=== PATIENT | male | born 1985 | race Caucasian/White ===

== ENCOUNTER 2020-02-20 21:07 | Emergency (ER) | payer BC, MEDICAID ==
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
[2020-02-20 22:13] VITALS: BP 102/75; PULSE 78
== END 2020-02-21 00:07 | disposition home or self-care (01) ==
LOC: JD.ED 21:07
DX: S89.92XA Unspecified injury of left lower leg, initial encounter (principal); Z88.6 Allergy status to analgesic agent; Z90.89 Acquired absence of other organs; Z90.49 Acquired absence of other specified parts of digestive tract; W22.8XXA Striking against or struck by other objects, initial encounter
CPT/HCPCS: 73562-LT; 73590-LT; 99282; 99283

== ENCOUNTER 2020-11-23 16:40 | Emergency (ER) | payer OTHER ==
[2020-11-23 16:52] VITALS: BP 115/75; PULSE 80
[2020-11-23] MEDS ORDERED: Sodium Chloride 0.9% 1,000 ML IV STA (17:05)
[2020-11-23] MEDS ORDERED: Ketorolac 30 MG/ML SDV IVPUSH ONE (17:05)
[2020-11-23] MEDS ORDERED: Ondansetron 4 MG/2 ML SDV IVPUSH ONE (17:05)
[2020-11-23] MEDS ORDERED: HYDROmorphone 0.5 MG/0.5 ML Syringe IVPUSH ONE (17:05)
[2020-11-23] MEDS ORDERED: Sodium Chloride 0.9% 10 ML Syringe FLUSH PRN (17:06)
--- NOTE | 2020-11-23 17:43 | CT ---
CT abdomen and pelvis Technique: Multiple axial sections were obtained from above the dome of the diaphragm inferiorly through the pubic symphysis. Intravenous and oral contrast were not utilized. Study has been performed as a ureteral stone protocol. Comparison: Prior contrast-enhanced CT study of the abdomen and pelvis dated 06/02/09. Findings: Small calcification is seen within the lower pole of the left kidney measuring about 3 mm compatible with nonobstructing calculus. Ureters show no dilatation. No abnormal calculi are seen along the course of the ureters. Appendix is not visualized with certainty. Visualized lung bases show nothing acute. Liver shows no focal parenchymal abnormality. Spleen size is normal. Adrenal glands show no nodule. No discrete pancreatic abnormality is appreciated. Gallbladder is collapsed. Abdominal aorta shows no aneurysm. No retroperitoneal adenopathy is seen. No pelvic mass or adenopathy is seen. No free fluid or inflammatory change is seen. Slight increased stool is seen throughout the colon. No small bowel dilatation is seen. Bone window settings were reviewed which show minimal degenerative change in the lower lumbar spine. Impression: 1. Small nonobstructing calculus within the lower left kidney. No ureteral dilatation or ureteral calculus is seen. 2. Slight increased stool within the colon. 3. Mild degenerative change within the lower lumbar spine. Diagnostic code #2
[2020-11-23] MEDS ORDERED: Magnesium Citrate Solution 296 ML Bottle PO ONE (18:27)
--- NOTE | 2020-11-23 18:28 | EDM.PDOC ---
ED HPI GENERAL MEDICAL PROBLEM - General Chief Complaint: Flank Pain Stated Complaint: KIDNEY PAIN Time Seen by Provider: 11/23/20 16:46 Source of Information: Reports: Patient, RN Notes Reviewed History Limitations: Reports: No Limitations - History of Present Illness INITIAL COMMENTS - FREE TEXT/NARRATIVE: She is a 35-year-old male presenting to the emergency department with complaints of right flank pain with a small amount of radiation to his right lateral abdomen. Symptoms began initially on Sunday. They resolved that evening and he did well until last evening when they returned. He has a history of kidney stones and states that this feels similar. Pain does not radiate into his groin or testicle. He has had no fever or chills. Denies nausea vomiting or diarr hea. He has not noticed any blood in his urine. Patient has a previous history of an appendectomy. Right Flank Pain Score (Numeric/FACES): 8 - Related Data Allergies Allergy/AdvReac Type Severity Reaction Status Date / Time cyclobenzaprine Allergy Severe Other Verified 11/23/20 16:53 Home Meds: Home Meds . [No Known Home Meds] 11/23/20 [History] Past Medical History - Past Health History Medical/Surgical History: Denies Medical/Surgical History HEENT History: Reports: None Cardiovascular History: Reports: None Respiratory History: Reports: None Genitourinary History: Reports: None Musculoskeletal History: Reports: Back Pain, Chronic Other Neuro History: Herniated Disc 10 years ago Psychiatric History: Reports: Anxiety Endocrine/Metabolic History: Reports: None Hematologic History: Reports: None Immunologic History: Reports: None Oncologic (Cancer) History: Reports: None - Infectious Disease History Infectious Disease History: Reports: Chicken Pox - Past Surgical History HEENT Surgical History: Reports: Adenoidectomy, Oral Surgery, Tonsillectomy GI Surgical History: Reports: Appendectomy Social & Family History - Family History Family Medical History: No Pertinent Family History - Tobacco Use Tobacco Use Status *Q: Current Every Day Tobacco User Years of Tobacco use: 20 Packs/Tins Daily: 1 - Caffeine Use Caffeine Use: Reports: Coffee, Soda - Recreational Drug Use Recreational Drug Use: No - Living Situation & Occupation Living situation: Reports: , with Spouse, with Family (3 kids) 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 ED EXAM,LOWER BACK PAIN/INJURY - Physical Exam Exam: See Below Exam Limited By: No Limitations General Appearance: Alert, WD/WN, No Apparent Distress Respiratory/Chest: No Respiratory Distress, Lungs Clear, Normal Breath Sounds, No Accessory Muscle Use, Chest Non-Tender Cardiovascular: Normal Peripheral Pulses, Regular Rate, Rhythm, No Edema, No Gallop, No JVD, No Murmur, No Rub GI/Abdominal: Normal Bowel Sounds, Soft, No Organomegaly, No Distention, No Abnormal Bruit, No Mass, Other (Mild tenderness to the right lateral abdomen) Back Exam: Normal Inspection, Full Range of Motion, CVA Tenderness (R). No: CVA Tenderness (L) Neurological: Alert, Normal Mood/Affect, Normal Dorsiflexion, CN II-XII Intact, Normal Plantar Flexion, Normal Gait, Normal Reflexes, No Motor/Sensory Deficits, Oriented x 3 Psychiatric: Normal Affect, Normal Mood Skin Exam: Warm, Dry, Intact, Normal Color, No Rash Course - Vital Signs Last Recorded V/S: Last Vital Signs Temp 97.8 F 11/23/20 16:49 Pulse 80 11/23/20 16:49 Resp 14 11/23/20 16:49 BP 115/75 11/23/20 16:49 Pulse Ox 97 11/23/20 16:49 - Orders/Labs/Meds Orders: Active Orders 24 hr Category Date Time Status Peripheral IV Care [RC] . DIRECTED Care 11/23/20 17:06 Active UA W/MICROSCOPIC [URIN] Stat Lab 11/23/20 17:51 Results Sodium Chloride 0.9% [Saline Flush] Med 11/23/20 17:06 Active 10 ml FLUSH ASDIRECTED PRN Peripheral IV Insertion Adult [OM.PC] Stat Oth 11/23/20 17:06 Ordered Medication Orders Sodium Chloride (Sodium Chloride 0.9% 10 Ml Syringe) 10 ml FLUSH ASDIRECTED PRN PRN Reason: Keep Vein Open Labs: Laboratory Tests 11/23/20 11/23/20 11/23/20 Range/Units 16:50 16:50 17:51 WBC 8.27 (4.23-9.07) K/mm3 RBC 5.16 (4.63-6.08) M/mm3 Hgb 15.7 (13.7-17.5) gm/dl Hct 44.3 (40.1-51.0) % MCV 85.9 (79.0-92.2) fl MCH 30.4 (25.7-32.2) pg MCHC 35.4 (32.2-35.5) g/dl RDW Std Deviation 38.9 (35.1-43.9) fL Plt Count 214 (163-337) K/mm3 MPV 10.2 (9.4-12.3) fl Neut % (Auto) 65.6 (34.0-67.9) % Lymph % (Auto) 23.0 (21.8-53.1) % Morrison % (Auto) 9.1 (5.3-12.2) % Eos % (Auto) 1.7 (0.8-7.0) Baso % (Auto) 0.4 (0.1-1.2) % Neut # (Auto) 5.43 H (1.78-5.38) K/mm3 Lymph # (Auto) 1.90 (1.32-3.57) K/mm3 Morrison # (Auto) 0.75 (0.30-0.82) K/mm3 Eos # (Auto) 0.14 (0.04-0.54) K/mm3 Baso # (Auto) 0.03 (0.01-0.08) K/mm3 Sodium 139 (136-145) mEq/L Potassium 3.9 (3.5-5.1) mEq/L Chloride 104 (98-107) mEq/L Carbon Dioxide 26 (21-32) mEq/L Anion Gap 12.9 (5-15) BUN 14 (7-18) mg/dL Creatinine 1.0 (0.7-1.3) mg/dL Est Cr Clr Drug Dosing 113.51 mL/min Estimated GFR (MDRD) > 60 (>60) mL/min BUN/Creatinine Ratio 14.0 (14-18) Glucose 116 H (70-99) mg/dL Calcium 8.6 (8.5-10.1) mg/dL Total Bilirubin 0.3 (0.2-1.0) mg/dL AST 11 L (15-37) U/L ALT 20 (16-63) U/L Alkaline Phosphatase 86 (46-116) U/L C-Reactive Protein <0.2 (<1.0) mg/dL Total Protein 6.9 (6.4-8.2) g/dl Albumin 4.2 (3.4-5.0) g/dl Globulin 2.7 gm/dL Albumin/Globulin Ratio 1.6 (1-2) Urine Color Light yellow (Yellow) Urine Appearance Clear (Clear) Urine pH 7.0 (5.0-8.0) Ur Specific [place] 1.015 (1.005-1.030) Urine Protein Negative (Negative) Urine Glucose (UA) Negative (Negative) Urine Ketones Negative (Negative) Urine Occult Blood Negative (Negative) Urine Nitrite Negative (Negative) Urine Bilirubin Negative (Negative) Urine Urobilinogen 0.2 (0.2-1.0) Ur Leukocyte Esterase Negative (Negative) Meds: Medications Generic Name Dose Route Start Last Admin Trade Name Freq PRN Reason Stop Dose Admin Sodium Chloride 10 ml 11/23/20 17:06 Sodium Chloride 0.9% 10 Ml Syringe FLUSH ASDIRECTED PRN Keep Vein Open Discontinued Medications Generic Name Dose Route Start Last Admin Trade Name Freq PRN Reason Stop Dose Admin Hydromorphone HCl 0.5 mg 11/23/20 17:05 11/23/20 17:42 Hydromorphone 0.5 Mg/0.5 Ml Syringe IVPUSH 11/23/20 17:06 0.5 mg ONETIME ONE Administration Sodium Chloride 1,000 mls @ 999 mls/hr 11/23/20 17:05 11/23/20 17:43 Normal Saline IV 11/23/20 18:05 999 mls/hr NOW STA Administration Ketorolac Tromethamine 30 mg 11/23/20 17:05 11/23/20 17:41 Ketorolac 30 Mg/Ml Sdv IVPUSH 11/23/20 17:06 30 mg ONETIME ONE Administration Ondansetron HCl 4 mg 11/23/20 17:05 11/23/20 17:42 Ondansetron 4 Mg/2 Ml Sdv IVPUSH 11/23/20 17:06 4 mg ONETIME ONE Administration - Re-Assessments/Exams Free Text/Narrative Re-Assessment/Exam: Is a 35-year-old male presenting to the emergency department complaints of right flank pain. Symptoms began on Sunday. They resolved throughout the day yesterday but then returned last evening. Describes it as a constant pain with occasional worsening "squeezing ". He has had kidney stones in the past and states that this feels similar. Exam, he has some mild right lateral abdominal tenderness as well as right CVA tenderness. I have ordered blood work, urinalysis, and a CT scan of the abdomen pelvis without contrast. Give him a 1 L bolus of normal saline, Dilaudid, Toradol, and Zofran. 11/23/20 18:26 Hematology is grossly unremarkable. Urinalysis is negative for blood and infection. CT scan of the abdomen pelvis impression as follows: 1. Small nonobstructing calculus within the lower left kidney. No ureteral dilatation or ureteral calculus is seen. 2. Slight increase stool within the colon. 3. Mild degenerative change within the lower lumbar spine. . Review of the CT images show that he does have significant stool in the area of discomfort. This is the likely cause of his discomfort. Patient will be sent home with a bottle of magnesium citrate. Discussed return precautions. Discharge instructions as documented. Departure - Departure Time of Disposition: 18:26 Disposition: Home, Self-Care 01 Condition: Good Clinical Impression: Constipation Qualifiers: Constipation type: unspecified constipation type Qualified Code(s): K59.00 - Constipation, unspecified - Discharge Information *PRESCRIPTION DRUG MONITORING PROGRAM REVIEWED*: No *COPY OF PRESCRIPTION DRUG MONITORING REPORT IN PATIENT TIMMY: No Instructions: Constipation, Adult Referrals: PCP,None [Primary Care Provider] - Additional Instructions: You were seen in the emergency department today for right-sided back pain. Work-up included blood work, urinalysis, and CT scan of the abdomen pelvis. Results of your work-up did not show any evidence of kidney stone, however you do have increased stool in your colon, particularly in the area of your discomfort. You've been sent home with a bottle of magnesium citrate. Drink this when you return home. This should produce a number of bowel movements, some of which may be loose. If you experience any new or worsening symptoms, please not hesitate to return to the emergency department. Sepsis Event Note (ED) - Evaluation Sepsis Screening Result: No Definite Risk - Focused Exam Vital Signs: Vital Signs Temp Pulse Resp BP Pulse Ox 11/23/20 16:49 97.8 F 80 14 115/75 97 - My Orders Last 24 Hours: My Active Orders 11/23/20 17:06 Peripheral IV Care [RC] . DIRECTED Sodium Chloride 0.9% [Saline Flush] 10 ml FLUSH ASDIRECTED PRN Peripheral IV Insertion Adult [OM.PC] Stat 11/23/20 17:51 UA W/MICROSCOPIC [URIN] Stat - Assessment/Plan Last 24 Hours: My Active Orders 11/23/20 17:06 Peripheral IV Care [RC] . DIRECTED Sodium Chloride 0.9% [Saline Flush] 10 ml FLUSH ASDIRECTED PRN Peripheral IV Insertion Adult [OM.PC] Stat 11/23/20 17:51 UA W/MICROSCOPIC [URIN] Stat
== END 2020-11-23 19:00 | disposition home or self-care (01) ==
LOC: JD.ED 16:40
DX: K59.00 Constipation, unspecified (principal); Z72.0 Tobacco use; Z88.8 Allergy status to other drugs, medicaments and biological substances
CPT/HCPCS: 36415; 74176; 80053; 81001; 85025; 86140; 96374; 96375; 99284; J1170; J1885; J2405; J7030

== ENCOUNTER 2021-03-27 23:02 | Emergency (ER) | payer MEDICAID, OTHER ==
[2021-03-28 00:26] VITALS: BP 125/86; PULSE 77
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
[2021-03-28] MEDS ORDERED: Silver Sulfadiazine 1% Crm 50 GM Tube TOP ONE (00:53)
== END 2021-03-28 01:06 | disposition home or self-care (01) ==
LOC: JD.ED 23:02
DX: T25.122A Burn of first degree of left foot, initial encounter (principal); Z72.0 Tobacco use; Z88.8 Allergy status to other drugs, medicaments and biological substances; X19.XXXA Contact with other heat and hot substances, initial encounter
CPT/HCPCS: 99283; A9270

== ENCOUNTER 2021-05-23 01:40 | Emergency (ER) | payer MEDICAID ==
[2021-05-23 01:52] VITALS: BP 114/81; PULSE 78
[2021-05-23] MEDS ORDERED: Orphenadrine 100 MG Tab.ER PO STA (02:52)
[2021-05-23] MEDS ORDERED: predniSONE 20 MG Tab PO STA (02:52)
== END 2021-05-23 03:15 | disposition home or self-care (01) ==
LOC: JD.ED 01:40
DX: M54.50 Low back pain, unspecified (principal); Z88.8 Allergy status to other drugs, medicaments and biological substances; Z72.0 Tobacco use
CPT/HCPCS: 99283; A9270; J7512

== ENCOUNTER 2021-06-26 15:20 | Emergency (ER) | payer MEDICAID ==
[2021-06-26 15:52] VITALS: BP 117/87; PULSE 79
[2021-06-26] MEDS ORDERED: Ibuprofen 800 MG Tab PO ONE (16:15)
[2021-06-26] MEDS ORDERED: Orphenadrine 100 MG Tab.ER PO ONE (16:16)
== END 2021-06-26 18:05 | disposition home or self-care (01) ==
LOC: JD.ED 15:20
DX: S30.0XXA Contusion of lower back and pelvis, initial encounter (principal); Z88.8 Allergy status to other drugs, medicaments and biological substances; Z72.0 Tobacco use; W10.8XXA Fall (on) (from) other stairs and steps, initial encounter
CPT/HCPCS: 72100; 99283; A9270; 99284

== ENCOUNTER 2022-02-21 17:14 | Emergency (ER) | payer MEDICAID ==
[2022-02-21 17:55] VITALS: BP 132/85; PULSE 80
== END 2022-02-21 19:45 | disposition home or self-care (01) ==
LOC: JD.ED 17:14
DX: R07.89 Other chest pain (principal); Z72.0 Tobacco use
CPT/HCPCS: 36415; 71045; 71045-26; 84484; 93005; 93010; 99283; 99285

== ENCOUNTER 2023-08-19 01:48 | Emergency (ER) | payer MEDICAID, BC ==
[2023-08-19 02:01] VITALS: BP 116/86; PULSE 89
== END 2023-08-19 02:46 | disposition home or self-care (01) ==
LOC: JD.ED 01:48
DX: S20.211A Contusion of right front wall of thorax, initial encounter (principal); F17.210 Nicotine dependence, cigarettes, uncomplicated; Z88.8 Allergy status to other drugs, medicaments and biological substances; Z86.19 Personal history of other infectious and parasitic diseases; W13.2XXA Fall from, out of or through roof, initial encounter
CPT/HCPCS: 71101-26-RT; 71101-RT; 99284